=== PATIENT | female | born 1975 | race Caucasian/White ===

== ENCOUNTER 2021-03-27 12:13 | Emergency (ER) | payer MEDICARE, MEDICAID, SELFPAY ==
[2021-03-27 12:17] VITALS: BP 168/105; PULSE 83; RESP 16; TEMP 37; O2SAT 99; BMI 28.1
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
[2021-03-27 12:51] LABS: Add Urine Microscopic? NO; Charge for UA Resulting for Rev
[2021-03-27 13:02] LABS: Bilirubin Urine Neg (Negative); Blood Urine Neg (Negative); Glucose Urine UA Norm (Normal); Ketones Urine Negative (Negative); Leukocyte Esterase Urine Negative (Negative); Nitrate Urine Negative (Negative); Protein Urine Neg (Negative); Specific Gravity, Urine 1.005 (1.005-1.030); Urine Appearance Clear (CLEAR); Urine Color Yellow (Yellow); Urobilinogen Urine Norm (Negative); pH Urine 7 (5-7)
[2021-03-27 13:20] LABS: Basophils # 0.1 10^3/uL (0.0-0.1); Basophils % 0.7 %; Eosinophils # 0.2 10^3/uL (0.0-0.8); Eosinophils % 2.5 %; Hematocrit 35.6 % (37.0-47.0); Hemoglobin 11.3 g/dL (11.5-15.3); Lymphocytes # 2.4 10^3/uL (0.8-4.8); Lymphocytes % 27.7 %; Mean Corpuscular HGB Conc 31.7 g/dL (30.0-36.0); Mean Corpuscular Hemoglobin 29.4 pg (28.0-34.0); Mean Corpuscular Volume 92.5 fL (81-99); Mean Platelet Volume 9.8 fL (7.4-10.4); Monocytes # 0.8 10^3/uL (0.2-0.9); Monocytes % 9.1 %; Neutrophils # 5.04 10^3/uL (1.8-7.7); Neutrophils % 59.5 %; Nucleated Red Blood Cells % 0 %; Platelet Count 363 10^3/cmm (130-400); Red Blood Count 3.85 10^6/uL (4.1-5.3); Red Cell Distribution Width 13.8 % (12.1-15.1); White Blood Count 8.5 10^3/uL (4.0-10.0)
[2021-03-27 13:40] LABS: Alanine Aminotransferase 28 U/L (0-33); Albumin Level 3.7 g/dL (3.5-5.2); Alkaline Phosphatase 123 IU/L (35-105); Aspartate Amino Transferase 31 U/L (0-32); Blood Urea Nitrogen 7 mg/dL (6-20); Calcium 8.2 mg/dL (8.5-10.5); Carbon Dioxide 26 mmol/L (22-29); Chloride 107 mmol/L (98-107); Globulin 3.6 g/dL (1.3-4.6); Glomerular Filtration Rate 108.6 mL/min (90-130); Glucose 88 mg/dL (65-115); Osmolality Calculated 291 mOsm/kg (285-295); Sodium 142 mmol/L (136-145); Total Bilirubin 0.2 mg/dL (0.15-1.2); Total Protein 7.3 g/dL (6.6-8.7)
--- NOTE | 2021-03-27 13:58 | PC.PHAR ---
pt states she takes care of her own medications-pt states she is allergic to famotidine 20mg bid filled on 03/25/21 pt states she has never taken this medication before-ext med history shows a 40mg daily filled on 10/13/2020 90d/s-pt states she didnt get mirtazapine 15mg hs,risperidone 0.5mg bid and senna s 1 bid all filled on 03/25/21-divine [phone] states the pt picked up these medications on 03/25/21
[2021-03-27] MEDS: ketorolac 30 mg/mL INJ IVP (14:21)
--- NOTE | 2021-03-27 16:08 | PC.NURSE ---
Pt appears to be in no pain, wandering around in the hallway, generally non-compliant with staff.
[2021-03-27 17:51] VITALS: BP 115/75; PULSE 71; RESP 16; O2SAT 98
== END 2021-03-27 17:52 | disposition home or self-care (01) ==
PROVIDERS: Emergency Provider Family Medicine
DX: S12.9XXA Fracture of neck, unspecified, initial encounter (principal); V45.9XXA Unspecified car occupant injured in collision with railway train or railway vehicle in traffic accident, initial encounter
CPT/HCPCS: 80053; 81003; 85025; 96374; 99283; J1885

== ENCOUNTER 2021-08-21 02:12 | Emergency (ER) | payer MEDICARE, MEDICAID, SELFPAY ==
[2021-08-21 02:14] VITALS: BP 141/89; PULSE 84; RESP 16; TEMP 35.9; O2SAT 96; BMI 23.6
--- NOTE | 2021-08-21 02:17 | XRR_ITS ---
PROCEDURE INFORMATION: Exam: XR Chest Exam date and time: 08/21/2021 2:17 AM Age: 45 years old Clinical indication: Prior surgery; Surgery type: Cervical fusion. Costal fixation. ; Patient HX: Epigastric pain; Additional info: Cp TECHNIQUE: Imaging protocol: XR of the chest. Views: 1 view. COMPARISON: CT Thoracic Spine wo IV* [id number] 02/06/2017 2:20 PM FINDINGS: Lungs: There are low lung volumes. Otherwise, the lungs are clear. Pleural spaces: Unremarkable. No pleural effusion. No pneumothorax. Heart/Mediastinum: Unremarkable. No cardiomegaly. Bones/joints: Multiple rib fixation plates are in place. Anterior cervical fixation hardware is in place. XR/XR chest 1V portable [id number] IMPRESSION: There are low lung volumes. Otherwise, the lungs are clear. Radiation Dose CTDIVOL = (mGy): DLP = (mGy-cm)
--- NOTE | 2021-08-21 02:18 | ECG_ITS ---
[facility] Test Date: 2021-08-21 Pat Name: Dao Rushing Department: Room: Gender: Female Mothers Helper: : 1975 Requested By: Rahul Michelle Order Number: [id number] Ninfa MD: Georgiana Bassett M.D. Measurements Intervals Spencer Rate: 73 P: 45 DE: 156 QRS: 5 QRSD: 96 T: 18 QT: 392 QTc: 432 Interpretive Statements SINUS RHYTHM POSSIBLE RIGHT VENTRICULAR CONDUCTION DELAY [RSR (QR) IN V1/V2] No previous ECG available for comparison Electronically Signed On 08-21-2021 9:34:47 CDT by Georgiana Bassett M.D. [email or web address] [email or web address] hospitalTendrkettering health troyObalon [employer]/store/NU/[id number] f
--- NOTE | 2021-08-21 02:21 | ED_ITS ---
HPI - Abdominal Pain General: Chief Complaint: Abdominal Pain Stated Complaint: behavioral Time Seen by Provider: 08/21/21 02:16 Source: patient and EMS Mode of arrival: EMS Limitations: no limitations History of Present Illness: HPI narrative: 45-year-old female is here with EMS with complaints of abdominal pain along with some right-sided chest pain. States she believes she had her chest yesterday as it hurts to touch. She is a history of homelessness and EMS states that they picked up her uncles residents but he states she is not allowed to stay there. She has no psychiatric complaints and denies any SI or HI. She is able answer my questions appropriately. She denies any fevers. States her pain is a diffuse cramping pain in abdomen rates it a 2 out of 10. She has had no vomiting or diarrhea. Associated Symptoms: Denies chills, dysuria and fever(s) Review of Systems Const: Denies: fever(s), chills, body aches or change in appetite Eyes: Denies: blurry vision or eye discomfort ENMT: Denies: throat pain or dental pain Card: Denies: chest pain Resp: Denies: dyspnea GI: Reports: abdominal pain : Denies: dysuria Musc: Denies: neck pain or back pain Skin/Breast: Denies: rash Neuro: Denies: headache(s) Psych: Denies: depression Donovan/Lymph: Denies: easy bruising All/Imm: Denies: urticaria Physical Exam Const: COMMON NORMALS: no acute distress, patient oriented x3 and healthy appearing HENMT: COMMON NORMALS: normocephalic and atraumatic HEAD & SCALP: normocephalic and atraumatic Eye: COMMON NORMALS: Equal, round and reactive pupils present and EOMs intact bilaterally PUPIL: Yes Equal, round and reactive pupils present Neck/C-Spine: COMMON NORMALS: full ROM and supple Chest: COMMONS NORMALS: normal inspection of the chest and normal palpation of entire chest wall Resp: COMMON NORMALS: normal respiratory effort, No retractions, No use of accessory muscles and clear to auscultation bilaterally AUSCULTATION: clear to auscultation bilaterally Cardio: COMMON NORMALS: regular rate, regular rhythm and No murmurs present (Cardio) RATE: regular rate RHYTHM: regular rhythm GI: COMMON NORMALS: Normal to inspection, nondistended, normoactive bowel sounds present, Soft to palpation, non-tender and no masses PALPATION: Yes Soft to palpation Extremity: COMMON NORMALS: normal to inspection and full ROM Neuro: COMMON NORMALS: patient oriented x3, moves all extremities and no focal motor deficits Psych: COMMON NORMALS: mental status grossly normal, Normal thought process present and cooperative THOUGHT PROCESS: Normal thought process present Skin: COMMON NORMALS: no rashes or lesions noted and no wounds GENERAL SKIN EXAM: no rashes or lesions noted Course Vital Signs: Vital signs: Vital Signs Temperature 96.7 F L 08/21/21 02:14 Pulse Rate 80 08/21/21 04:57 Respiratory Rate 22 H 08/21/21 04:57 Blood Pressure 136/84 08/21/21 04:57 Pulse Oximetry 97 08/21/21 04:57 MDM - Abdominal Pain MDM Narrative: Medical decision making narrative: Patient presents here with abdominal pain likely from acute cystitis. Exam here is benign she has no signs of acute surgical abdomen has a normal white blood cell count. I do not believe she warrants an abdominal CT. Will place on antibiotics and she is stable for discharge. She is to follow-up with PCP and return if worsening. Lab Data: Labs: Lab Results 08/21/21 08/21/21 08/21/21 03:25 03:25 03:53 WBC Cancelled 7.2 10^3/uL 10^3/ uL (4.0-10.0) Corrected WBC Cancelled RBC Cancelled 4.98 10^6/uL 10^6 /uL (4.1-5.3) Hgb Cancelled 14.2 g/dL g/dL (11.5-15.3) Hct Cancelled 42.8 % % (37.0-47.0) MCV Cancelled 85.9 fl fl (81-99) MCH Cancelled 28.5 pg pg (28.0-34.0) MCHC Cancelled 33.2 g/dL g/dL (30.0-36.0) RDW Cancelled 15.1 % % (12.1-15.1) Plt Count Cancelled 259 10^3/cmm 10^3 /cmm (130-400) MPV Cancelled 10.0 fL fL (7.4-10.4) Gran % Cancelled Neut % (Auto) Cancelled 51.4 % % Lymph % (Auto) Cancelled 37.4 % % [place] % (Auto) Cancelled 8.7 % % Eos % (Auto) Cancelled 1.2 % % Baso % (Auto) Cancelled 1.0 % % Neut # (Auto) Cancelled 3.70 10^3/uL 10^3 /uL (1.8-7.7) Lymph # (Auto) Cancelled 2.7 10^3/uL 10^3/ uL (0.8-4.8) [place] # (Auto) Cancelled 0.6 10^3/uL 10^3/ uL (0.2-0.9) Eos # (Auto) Cancelled 0.1 10^3/uL 10^3/ uL (0.0-0.8) Baso # (Auto) Cancelled 0.1 10^3/uL 10^3/ uL (0.0-0.1) Absolute Gran (aut o) Cancelled Nucleated RBC % (a uto) Cancelled 0 % % Nucleated RBCs # Cancelled 0.0 /100WBC /100W BC Sodium 136 mmol/L mmol/L (136-145) Potassium 3.8 mmol/L mmol/L (3.5-5.1) Chloride 105 mmol/L mmol/L (98-107) Carbon Dioxide 21 mmol/L L mmol/ L (22-29) Anion Gap 13.8 (5-19) BUN 6 mg/dL mg/dL (6-20) Creatinine 0.5 mg/dL mg/dL (0.5-0.9) GFR Calculation 134.0 mL/min H mL /min (90-130) Glucose 91 mg/dL mg/dL (65-115) Calculated Osmolal ity 279 mOsm/kg L mOs m/kg (285-295) Calcium 8.7 mg/dL mg/dL (8.5-10.5) Total Bilirubin 0.5 mg/dL mg/dL (0.15-1.2) AST 46 U/L H U/L (0-32) ALT 49 U/L H U/L (0-33) Alkaline Phosphata se 104 IU/L IU/L (35-105) Total Protein 6.9 g/dL g/dL (6.6-8.7) Albumin 3.9 g/dL g/dL (3.5-5.2) Globulin 3.0 g/dL g/dL (1.3-4.6) Lipase 24 U/L U/L (13-60) Urine Color Urine Appearance Urine pH Ur Specific Gravit y Urine Protein Urine Glucose (UA) Urine Ketones Urine Blood Urine Nitrate Urine Bilirubin Urine Urobilinogen Ur Leukocyte Sangeeta ase Urine RBC Urine WBC Ur Squamous Epith Cells Amorphous Sediment Urine Bacteria Urine Opiates Scre en Ur Barbiturates Sc reen Ur Phencyclidine S crn Ur Amphetamines Sc reen U Benzodiazepines Scrn Urine Cocaine Scre en U Marijuana (THC) Screen 08/21/21 08/21/21 04:20 04:20 WBC Corrected WBC RBC Hgb Hct MCV MCH MCHC RDW Plt Count MPV Gran % Neut % (Auto) Lymph % (Auto) [place] % (Auto) Eos % (Auto) Baso % (Auto) Neut # (Auto) Lymph # (Auto) [place] # (Auto) Eos # (Auto) Baso # (Auto) Absolute Gran (aut o) Nucleated RBC % (a uto) Nucleated RBCs # Sodium Potassium Chloride Carbon Dioxide Anion Gap BUN Creatinine GFR Calculation Glucose Calculated Osmolal ity Calcium Total Bilirubin AST ALT Alkaline Phosphata se Total Protein Albumin Globulin Lipase Urine Color Colorless (Yellow) Urine Appearance Clear (CLEAR) Urine pH 7 (5-7) Ur Specific Gravit y 1.005 (1.005-1.030) Urine Protein Neg (Negative) Urine Glucose (UA) Norm (Normal) Urine Ketones Negative (Negative) Urine Blood Neg (Negative) Urine Nitrate Positive H (Negative) Urine Bilirubin Neg (Negative) Urine Urobilinogen Norm mg/dL mg/dL (Negative) Ur Leukocyte Sangeeta ase Negative (Negative) Urine RBC None /hpf /hpf (0-2) Urine WBC None /hpf /hpf (0-5) Ur Squamous Epith Cells Rare /hpf /hpf (0-5) Amorphous Sediment Not Reportable Urine Bacteria 1+ /hpf H /hpf (NONE) Urine Opiates Scre en Negative ng/mL ng /mL (Negative) Ur Barbiturates Sc reen Negative ng/mL ng /mL (Negative) Ur Phencyclidine S crn Negative ng/mL ng /mL (Negative) Ur Amphetamines Sc reen Negative ng/mL ng /mL (Negative) U Benzodiazepines Scrn Negative ng/mL ng /mL (Negative) Urine Cocaine Scre en Negative ng/mL ng /mL (Negative) U Marijuana (THC) Screen Negative ng/mL ng /mL (Negative) Imaging Data ^: CXR: Attestation: I personally reviewed and interpreted this imaging study as follows: Radiologist's impression: [facility] [address] [facility] [place] [address] XRay Report Signed Patient: Dao Rushing Unit #: [id number] : 1975 Age/Sex: 45 / F ADM Date: 08/21/21 Loc: ER Room/Bed: Attending Dr: Ordering Provider/Ordering MD: Rahul Michelle MD Date of Service: 08/21/21 Procedure(s): XR chest 1V portable [id number] Accession Number(s): [id number] Report Number: [id number] PROCEDURE INFORMATION: Exam: XR Chest Exam date and time: 08/21/2021 2:17 AM Age: 45 years old Clinical indication: Prior surgery; Surgery type: Cervical fusion. Costal fixation. ; Patient HX: Epigastric pain; Additional info: Cp TECHNIQUE: Imaging protocol: XR of the chest. Views: 1 view. COMPARISON: CT Thoracic Spine wo IV* [id number] 02/06/2017 2:20 PM FINDINGS: Lungs: There are low lung volumes. Otherwise, the lungs are clear. Pleural spaces: Unremarkable. No pleural effusion. No pneumothorax. Heart/Mediastinum: Unremarkable. No cardiomegaly. Bones/joints: Multiple rib fixation plates are in place. Anterior cervical fixation hardware is in place. XR/XR chest 1V portable [id number] IMPRESSION: There are low lung volumes. Otherwise, the lungs are clear. Radiation Dose CTDIVOL = (mGy): DLP = (mGy-cm) Dictated By: Victor M Park Signed By: Victor M Park Signed Date/Time: 08/21/218 DD/ 6 EKG Data ^: EKG 1: Attestation: I personally reviewed and interpreted this EKG as follows: EKG interpretation date: 08/21/21 EKG interpretation time: 02:31 Interpretation: nsr hr [address] or t wave abnormalities qrs 96 qtc 417 Discharge Plan Discharge Patient Disposition: Home Clinical Impression: Abdominal pain Acute cystitis Qualifiers: Hematuria presence: without hematuria Qualified Code(s): N30.00 - Acute cystitis without hematuria Condition: Stable Prescriptions: New cephalexin 500 mg capsule 500 mg PO TID 7 Days Qty: 21 RF: 0 ondansetron 4 mg tablet,disintegrating 4 mg PO Q6H PRN (Reason: nausea and vomiting) Qty: 14 RF: 0 No Action ibuprofen 800 mg tablet 800 mg PO TID PRN (Reason: Pain) RF: 0 Stimulant Laxative Plus 8.6-50 mg tablet 1 tab PO BID RF: 0 Tylenol Extra Strength 500 mg Tablet 500 - 1,000 mg PO PRN RF: 0 gabapentin 300 mg capsule 300 mg PO TID RF: 0 mirtazapine 15 mg tablet 15 mg PO BEDTIME RF: 0 zolpidem 10 mg tablet 10 mg PO BEDTIME RF: 0 risperidone 0.5 mg tablet 0.5 mg PO BID RF: 0 Discharge Orders: Discharge ED (Routine); Ordered 08/21/21 Ordered By: Rahul Michelle Discharge Diet: Advance as tolerated Discharge Activity: Resume usual activity Patient Instructions: Urinary Tract Infection in Women (ED), Abdominal Pain (ED) Coding Level of Care Code ED Solution Strategist for Chg Fwd Exam Comprehensive
[2021-08-21] MEDS: sodium chloride 0.9% 500 ML IV (03:14)
[2021-08-21 03:54] LABS: Alanine Aminotransferase 49 U/L (0-33); Albumin Level 3.9 g/dL (3.5-5.2); Alkaline Phosphatase 104 IU/L (35-105); Blood Urea Nitrogen 6 mg/dL (6-20); Calcium 8.7 mg/dL (8.5-10.5); Carbon Dioxide 21 mmol/L (22-29); Chloride 105 mmol/L (98-107); Glucose 91 mg/dL (65-115); Lipase 24 U/L (13-60); Osmolality Calculated 279 mOsm/kg (285-295); Sodium 136 mmol/L (136-145); Total Bilirubin 0.5 mg/dL (0.15-1.2); Total Protein 6.9 g/dL (6.6-8.7)
[2021-08-21 03:55] LABS: Anion Gap 13.8 (5-19); Aspartate Amino Transferase 46 U/L (0-32); Potassium 3.8 mmol/L (3.5-5.1)
[2021-08-21 03:58] LABS: Basophils # 0.1 10^3/uL (0.0-0.1); Eosinophils # 0.1 10^3/uL (0.0-0.8); Eosinophils % 1.2 %; Hematocrit 42.8 % (37.0-47.0); Hemoglobin 14.2 g/dL (11.5-15.3); Lymphocytes # 2.7 10^3/uL (0.8-4.8); Lymphocytes % 37.4 %; Mean Corpuscular HGB Conc 33.2 g/dL (30.0-36.0); Mean Corpuscular Hemoglobin 28.5 pg (28.0-34.0); Mean Corpuscular Volume 85.9 fl (81-99); Monocytes # 0.6 10^3/uL (0.2-0.9); Monocytes % 8.7 %; Neutrophils % 51.4 %; Nucleated Red Blood Cells % 0 %; Platelet Count 259 10^3/cmm (130-400); Red Blood Count 4.98 10^6/uL (4.1-5.3); Red Cell Distribution Width 15.1 % (12.1-15.1); White Blood Count 7.2 10^3/uL (4.0-10.0)
[2021-08-21 04:32] LABS: Add Urine Microscopic? YES; Bilirubin Urine Neg (Negative); Blood Urine Neg (Negative); Glucose Urine UA Norm (Normal); Ketones Urine Negative (Negative); Leukocyte Esterase Urine Negative (Negative); Nitrate Urine Positive (Negative); Protein Urine Neg (Negative); Specific Gravity, Urine 1.005 (1.005-1.030); Urine Appearance Clear (CLEAR); Urine Color Colorless (Yellow); Urobilinogen Urine Norm (Negative); pH Urine 7 (5-7)
[2021-08-21] MEDS: ondansetron 2 mg/ML SDV 2 mL 4 MG IVP (04:35)
[2021-08-21 04:39] LABS: Amphetamines Screen Urine Negative (Negative); Barbiturates Screen Urine Negative (Negative); Benzodiazepines Screen Urine Negative (Negative); Cocaine Screen Urine Negative (Negative); Opiate Screen Urine Negative (Negative); PCP Screen Urine Negative (Negative); THC Screen Urine Negative (Negative)
[2021-08-21 04:43] VITALS: RESP 22; O2SAT 98
[2021-08-21] MEDS: morphine 4 mg/mL SDV 1 mL IVP (04:43)
[2021-08-21 04:47] LABS: Add Urine Culture? No; Bacteria Urine 1+ /hpf; Squamous Epithelial Cell Urine RARE /hpf (0-5)
[2021-08-21 04:57] VITALS: BP 136/84; PULSE 80; RESP 22; O2SAT 97
--- NOTE | 2021-08-21 09:35 | DCPLANNER ---
air battle manager was asked to help find a rehab placement for patient. air battle manager called [facility], they have no female beds at this time. air battle manager called [facility], and they are not doing any in patient treatment at this time. air battle manager called [facility], was told that patient would need to call and speak with an janitorial tech. air battle manager provided patient with phone number and patient called. air battle manager called [facility] in [place], was told that they were 3 weeks out on having any beds. air battle manager called [facility], they do not have any beds until the end of August. air battle manager also called the following places [facility], [facility] and [place], and they do not have any beds at this time. air battle manager updated charge nurse on looking for beds for patient.
== END 2021-08-21 05:00 | disposition home or self-care (01) ==
PROVIDERS: Emergency Provider Emergency Medicine
DX: N30.00 Acute cystitis without hematuria (principal)
CPT/HCPCS: 36415; 71045; 80053; 80306; 81001; 83690; 85025; 93005; 96361; 96374; 96375; 99283; J2270; J2405; J7040

== ENCOUNTER 2021-08-22 09:26 | Emergency (ER) | payer MEDICARE, MEDICAID, SELFPAY ==
[2021-08-22 09:32] VITALS: BP 119/78; PULSE 67; RESP 14; TEMP 36.6; O2SAT 97; BMI 25.8
[2021-08-22 09:44] VITALS: BP 119/78; PULSE 72; O2SAT 97
--- NOTE | 2021-08-22 09:48 | XRR_ITS ---
PROCEDURE INFORMATION: Exam: XR Right Clavicle, Complete Exam date and time: 08/22/2021 9:48 AM Age: 45 years old Clinical indication: Pain; Other: Clavicle; Additional info: Deformity TECHNIQUE: Imaging protocol: XR Right clavicle complete. Views: Any number of views. Total images: 2 COMPARISON: CR (CHEST, ) 08/21/2021 2:23 AM FINDINGS: Bones/joints: Spinal fusion hardware noted. Soft tissues: Normal. XR/[place] [id number] IMPRESSION: No acute findings. Radiation Dose CTDIVOL = (mGy): DLP = (mGy-cm)
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
[2021-08-22] MEDS: cephALEXin 500 mg Capsule PO (12:18)
[2021-08-22] MEDS: ondansetron 4 MG Tablet PO (12:18)
[2021-08-22] MEDS: CELEcoxib 200 mg Capsule 400 MG PO (12:18)
--- NOTE | 2021-08-25 14:43 | DCPLANNER ---
nurse case manager had message to speak with patient about getting a primary care physician, and speak to patient about [facility]. nurse case manager called patient, unable to speak with patient or leave a voicemail for patient.
== END 2021-08-22 12:58 | disposition home or self-care (01) ==
PROVIDERS: Emergency Provider Nurse Practitioner Family
DX: N30.00 Acute cystitis without hematuria (principal); F10.10 Alcohol abuse, uncomplicated
CPT/HCPCS: 73000; 99283; Q0162

== ENCOUNTER 2021-09-02 10:07 | Emergency (ER) | payer MEDICARE, MEDICAID, SELFPAY ==
[2021-09-02 10:19] VITALS: BP 140/97; PULSE 82; RESP 16; TEMP 36.8; O2SAT 98; BMI 27.1
[2021-09-02 10:31] VITALS: BP 140/97; PULSE 82; RESP 16; TEMP 36.8; O2SAT 98
--- NOTE | 2021-09-02 10:46 | W.ED.PSYCH ---
Documented by User: VENUS Young 09/02/21 16:12 HPI - Psych General: Chief Complaint: Psychiatric Symptoms Stated Complaint: MHE Time Seen by Provider: 09/02/21 10:28 History of Present Illness: HPI Narrative: Patient is a 45-year-old female comes to the ED for mental health evaluation. Patient is homeless and comes here to the ED because she most cannot go to a homeless senior living and they told her she needed a mental health evaluation before she could be accepted into the homeless senior living. Patient denies any recent drug or alcohol abuse. She does admit to having a drink of alcohol late last night. Denies any SI, HI, depression, anxiety, auditory or visual hallucinations. Patient denies any other complaints. Associated symptoms: Deny auditory hallucinations, visual hallucinations, depression, homicidal ideation or suicidal ideation Review of Systems Const: Denies: fever(s), chills or fatigue Eyes: Denies: change in vision or eye discomfort ENMT: Denies: throat pain, odynophagia, nasal discharge or nasal congestion Card: Denies: chest pain, palpitations, edema, swelling of feet/ankles, dyspnea on exertion or orthopnea Resp: Denies: dyspnea, productive cough or non-productive cough GI: Denies: abdominal pain, nausea, vomiting, diarrhea, constipation or hematochezia : Denies: flank pain, dysuria or hematuria Musc: Denies: neck pain, back pain or extremity swelling Skin/Breast: Denies: rash or new lesions Neuro: Denies: headache(s), numbness in extremities or weakness in extremities Psych: Denies: anxiety, depression, visual hallucinations, auditory hallucinations, suicidal ideation or homicidal ideation Physical Exam Const: COMMON NORMALS: no acute distress, patient oriented x3 and alert GENERAL APPEARANCE: cooperative and comfortable HENMT: COMMON NORMALS: normocephalic HEAD & SCALP: normocephalic MOUTH: Normal oral and palatal mucosa present THROAT: posterior oropharynx normal and uvula midline Neck/C-Spine: COMMON NORMALS: supple GENERAL: Yes normal visual inspection Resp: COMMON NORMALS: normal respiratory effort, No retractions, No use of accessory muscles and clear to auscultation bilaterally AUSCULTATION: clear to auscultation bilaterally Cardio: COMMON NORMALS: regular rate, regular rhythm, S1 normal heart sound present, S2 normal heart sound present, No gallops present (Cardio), No clicks present (Cardio), No murmurs present (Cardio) and Peripheral pulses 2+ throughout RATE: regular rate RHYTHM: regular rhythm HEART SOUNDS: S1 normal heart sound present and S2 normal heart sound present PERIPHERAL PULSES: Peripheral pulses 2+ throughout GI: COMMON NORMALS: Normal to inspection, nondistended, normoactive bowel sounds present, Soft to palpation, non-tender and no masses PALPATION: Yes Soft to palpation : COMMON NORMALS: Yes no CVA tenderness BLADDER/KIDNEY EXAM: Yes no CVA tenderness Back/Pelvis: COMMON NORMALS: no CVA tenderness Extremity: COMMON NORMALS: normal to inspection Neuro: COMMON NORMALS: patient oriented x3 and moves all extremities SENSORIUM/ORIENTATION: Yes alert Psych: COMMON NORMALS: mental status grossly normal and speech normal APPEARANCE: Yes grossly normal ATTITUDE: Yes calm ACTIVITY/MOTOR BEHAVIOR: Yes appropriate eye contact SPEECH: Yes normal speech THOUGHT CONTENT: No Suicidality present, No Homicidality present and No Hallucination(s) present ATTENTION/CONCENTRATION: Yes attention grossly intact and Yes concentration grossly intact MEMORY/COGNITION: Yes memory grossly intact and Yes cognition grossly intact Skin: GENERAL SKIN EXAM: dry skin Course Vital Signs: Vital signs: Vital Signs Temperature 98.2 F 09/02/21 10:31 Pulse Rate 82 09/02/21 10:31 Respiratory Rate 16 09/02/21 10:31 Blood Pressure 140/97 09/02/21 10:31 Pulse Oximetry 98 09/02/21 10:31 MDM - Psych MDM Narrative: Medical decision making narrative: Patient is a 45-year-old female comes to the ED for mental health evaluation. Patient is homeless and says she is going into a homeless senior living and they told her to come here to the ED to have any evaluation performed. Patient denies any SI, HI, depression, anxiety, auditory or visual hallucinations. Patient does not have a primary care doctor and asked me to get a referral, so I placed an order with case management for patient to be referred to PCP to get established care. Patient is cleared for discharge and told to go to the homeless senior living after DC. Patient understood agree with plan. Discharge Plan Discharge Patient Disposition: Home Clinical Impression: Homelessness unspecified Condition: Stable Prescriptions: No Action ibuprofen 800 mg tablet 800 mg PO TID PRN (Reason: Pain) RF: 0 Stimulant Laxative Plus 8.6-50 mg tablet 1 tab PO BID RF: 0 Tylenol Extra Strength 500 mg Tablet 500 - 1,000 mg PO PRN RF: 0 gabapentin 300 mg capsule 300 mg PO TID RF: 0 mirtazapine 15 mg tablet 15 mg PO BEDTIME RF: 0 zolpidem 10 mg tablet 10 mg PO BEDTIME RF: 0 risperidone 0.5 mg tablet 0.5 mg PO BID RF: 0 ondansetron 4 mg tablet,disintegrating 4 mg PO Q6H PRN (Reason: nausea and vomiting) Qty: 14 RF: 0 Discharge Orders: Discharge ED (Routine); Ordered 09/02/21 Ordered By: Grzegorz Frazier Discharge Diet: Regular Discharge Activity: Resume usual activity Activity Restrictions/Additional Instructions: Follow-up with medical provider as directed in 7-10 days for reevaluation. go to homeless senior living after discharge. Return to the ER or your medical provider if condition worsens. Please read and understand discharge instructions. Thank you for choosing [facility] for your healthcare needs today. Please realize this is an emergency room and that we are providing you with a medical screening exam and this may not be complete and all inclusive of all the testing and or work up that you may need to determine your ailment or severity of your illness. It is very important that you follow up as instructed or that you return to the Emergency Department should you have concerns or if your condition changes or worsens in any way. Coding Level of Care Code ED Grocery Associate for Chg Fwd Exam Comprehensive Documented by User: Yusuf Power DO 09/02/21 16:16 HPI - Psych General: Chief Complaint: Psychiatric Symptoms Stated Complaint: MHE Time Seen by Provider: 09/02/21 10:28 Course Vital Signs: Vital signs: Vital Signs Temperature 98.2 F 09/02/21 10:31 Pulse Rate 82 09/02/21 10:31 Respiratory Rate 16 09/02/21 10:31 Blood Pressure 140/97 09/02/21 10:31 Pulse Oximetry 98 09/02/21 10:31 MDM - Psych MDM Narrative: Medical decision making narrative: Patient reviewed and discussed with Grzegorz Frazier PA agree with assessment and plan. Discharge Plan Discharge Patient Disposition: Home Clinical Impression: Homelessness unspecified Condition: Stable Prescriptions: No Action ibuprofen 800 mg tablet 800 mg PO TID PRN (Reason: Pain) RF: 0 Stimulant Laxative Plus 8.6-50 mg tablet 1 tab PO BID RF: 0 Tylenol Extra Strength 500 mg Tablet 500 - 1,000 mg PO PRN RF: 0 gabapentin 300 mg capsule 300 mg PO TID RF: 0 mirtazapine 15 mg tablet 15 mg PO BEDTIME RF: 0 zolpidem 10 mg tablet 10 mg PO BEDTIME RF: 0 risperidone 0.5 mg tablet 0.5 mg PO BID RF: 0 ondansetron 4 mg tablet,disintegrating 4 mg PO Q6H PRN (Reason: nausea and vomiting) Qty: 14 RF: 0 Discharge Orders: Discharge ED (Routine); Ordered 09/02/21 Ordered By: Grzegorz Frazier Discharge Diet: Regular Discharge Activity: Resume usual activity Activity Restrictions/Additional Instructions: Follow-up with medical provider as directed in 7-10 days for reevaluation. go to homeless senior living after discharge. Return to the ER or your medical provider if condition worsens. Please read and understand discharge instructions. Thank you for choosing [facility] for your healthcare needs today. Please realize this is an emergency room and that we are providing you with a medical screening exam and this may not be complete and all inclusive of all the testing and or work up that you may need to determine your ailment or severity of your illness. It is very important that you follow up as instructed or that you return to the Emergency Department should you have concerns or if your condition changes or worsens in any way. Coding Level of Care Code ED Grocery Associate for Eli Fwd Exam Comprehensive
--- NOTE | 2021-09-02 14:50 | PC.NURSE ---
Awaiting transportation for pt.
--- NOTE | 2021-09-03 14:26 | DCPLANNER ---
analytics senior manager had message to speak with patient about getting a primary care physician. analytics senior manager called phone number [phone], unable to speak with patient or leave a voicemail for patient. A recording stated that the phone number was unavailable.
== END 2021-09-02 15:12 | disposition home or self-care (01) ==
PROVIDERS: Emergency Provider Physician Assistant
DX: Z00.8 Encounter for other general examination (principal); Z59.00 Homelessness unspecified
CPT/HCPCS: 99282

== ENCOUNTER → 2024-06-05 11:13 | Outpatient (BNVA) | payer MEDICARE, MEDICAID, SELFPAY | PROVIDERS: Visit Provider Nurse Practitioner | DX: L65.9 Nonscarring hair loss, unspecified (principal) | CPT/HCPCS: 80053; 84443; 85025 ==

== ENCOUNTER 2025-04-21 19:22 | Emergency (ER) | payer OTHER, MEDICAID, SELFPAY ==
[2025-04-21 19:23] VITALS: BP 134/97; PULSE 88; RESP 18; TEMP 37; O2SAT 95; BMI 32.9
--- NOTE | 2025-04-21 19:38 | CTR_ITS ---
PROCEDURE INFORMATION: Exam: CT Abdomen And Pelvis With Contrast Exam date and time: 04/21/2025 8:11 PM Age: 49 years old Clinical indication: Abdominal pain; Localized; Left lower quadrant (llq); Prior surgery; Surgery date: 6+ months; Surgery type: Hysterectomy; C/O llq pain; Additional info: Llq abd pain TECHNIQUE: Imaging protocol: Computed tomography of the abdomen and pelvis with contrast. Radiation optimization: All CT scans at this facility use at least one of these dose optimization techniques: automated exposure control; mA and/or kV adjustment per patient size (includes targeted exams where dose is matched to clinical indication); or iterative reconstruction. Contrast material: OMNI 350; Contrast volume: 100 ml; Contrast route: INTRAVENOUS (IV); COMPARISON: CR XR chest 1V portable [id number] 08/21/2021 2:23 AM RADIATION DOSE METRICS: Total DLP (mGy-cm): 999.72 FINDINGS: Lungs: Visualized lung bases are clear. Liver: The liver is unremarkable. Gallbladder and biliary ducts: The gallbladder is unremarkable. No biliary ductal dilatation. Pancreas: The pancreas is unremarkable. Spleen: The spleen is unremarkable. Adrenal glands: The adrenal glands are unremarkable. Kidneys and ureters: Kidneys are normal. No hydronephrosis or nephrolithiasis. Stomach and bowel: No evidence of bowel obstruction. Appendix: The appendix is normal. Intraperitoneal space: No significant free fluid in the abdomen or pelvis. No extraluminal free air. Vasculature: Minimal scattered calcific atheromatous disease of the abdominal aorta and its major branches. No abdominal aortic aneurysm. Lymph nodes: No distinct pathologically enlarged lymphadenopathy. Urinary bladder: Urinary bladder is within normal limits. Reproductive: Uterus is absent. Bones/joints: Multilevel spondylosis. Partially imaged fixation of multiple right ribs. No distinct acute osseous findings. Soft tissues: Visualized superficial soft tissues are within normal limits. CT/CT abdomen pelvis w con* [id number] IMPRESSION: No acute pathologic findings in the abdomen/pelvis.
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
[2025-04-21 20:08] LABS: Basophils # 0.1 10^3/uL (0.0-0.1); Basophils % 0.5 %; Eosinophils # 0.1 10^3/uL (0.0-0.8); Eosinophils % 0.5 %; Hematocrit 39.3 % (36-47); Lymphocytes # 2.6 10^3/uL (0.8-4.8); Lymphocytes % 23.4 %; Mean Corpuscular HGB Conc 34.9 g/dL (30-55); Mean Corpuscular Hemoglobin 31.6 pg (27-33); Mean Corpuscular Volume 90.8 fl (85-98); Mean Platelet Volume 10.3 fL (7.4-10.4); Monocytes # 0.9 10^3/uL (0.2-0.9); Monocytes % 8.3 %; Neutrophils # 7.29 10^3/uL (1.8-7.7); Neutrophils % 66.8 %; Nucleated Red Blood Cells % 0 %; Platelet Count 248 10^3/cmm (157-399); Red Blood Count 4.33 10^6/uL (3.85-5.65); Red Cell Distribution Width 12.5 % (12.1-15.1); White Blood Count 10.93 10^3/uL (3.29-11.43)
[2025-04-21] MEDS: ketorolac 30 mg/mL INJ 15 MG IVP (20:10)
[2025-04-21 20:12] LABS: Bilirubin Urine Negative (Negative); Blood Urine Negative (Negative); Glucose Urine UA Negative (Normal); Ketones Urine Negative (Negative); Leukocyte Esterase Urine Negative (Negative); Nitrate Urine Negative (Negative); Protein Urine Negative (Negative); Specific Gravity, Urine 1.003 (1.005-1.030); Urine Appearance Clear (CLEAR); Urine Color Yellow (Yellow); Urobilinogen Urine 0.2 mg/dL (Negative); pH Urine 5.5 (5-7)
[2025-04-21] MEDS: iohexol 350 mg/mL 500 mL Btl (per mL) IV (20:13)
--- NOTE | 2025-04-21 20:16 | PC.NURSE ---
Patient in CT for scan.
[2025-04-21 20:17] LABS: Add Urine Microscopic? YES; Bacteria Urine None Seen /hpf; Hyaline Casts Urine 0-4 /lpf; RBC Urine 0-2 /hpf (0-2); Squamous Epithelial Cell Urine 0-5 /hpf (0-5); WBC Urine 0-5 /hpf (0-5)
[2025-04-21 20:33] VITALS: BP 129/72; PULSE 76; RESP 18; O2SAT 93
[2025-04-21 20:34] LABS: Alanine Aminotransferase 95 U/L (0-33); Albumin Level 3.8 g/dL (3.5-5.2); Alkaline Phosphatase 121 U/L (35-105); Aspartate Amino Transferase 67 U/L (0-32); Blood Urea Nitrogen 5 mg/dL (6-20); Calcium 8.9 mg/dL (8.5-10.5); Carbon Dioxide 20 mmol/L (22-29); Chloride 105 mmol/L (98-107); Creatinine Clr Calc Pharmacy 141.6579; Globulin 3.1 g/dL (1.3-4.6); Glomerular Filtration Rate 106.7 mL/min (90-130); Glucose 85 mg/dL (65-115); Lipase 43 U/L (13-60); Osmolality Calculated 279 mOsm/kg (285-295); Sodium 136 mmol/L (136-145); Total Bilirubin 0.2 mg/dL (0.15-1.2); Total Protein 6.9 g/dL (6.6-8.7)
[2025-04-21 20:37] LABS: Anion Gap 14.8 (5-19); Potassium 3.8 mmol/L (3.5-5.1)
[2025-04-21 20:43] LABS: HCG Qualitative Urine. Negative (Negative)
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
[2025-04-21 21:31] LABS: Trichomonas vaginalis (PCR) NOT DETECTED
[2025-04-21 21:55] LABS: Chlamydia Trachomatis NOT DETECTED; Neisseria Gonorrhea NOT DETECTED
--- NOTE | 2025-04-21 22:42 | PC.NURSE ---
patient would not allow me the check her vital signs. Her IV was removed, discharge was reviewed with the patient by the [facility] nurse. Resources were given to the patient. patient ambulated to with a steady gait.
[2025-04-21 22:45] LABS: Amphetamines Screen Urine Negative (Negative); Barbiturates Screen Urine Negative (Negative); Benzodiazepines Screen Urine Negative (Negative); Cocaine Screen Urine Negative (Negative); Opiate Screen Urine Negative (Negative); PCP Screen Urine Negative (Negative); THC Screen Urine Negative (Negative)
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
== END 2025-04-21 22:15 | disposition home or self-care (01) ==
PROVIDERS: Emergency Medicine; Emergency Provider Emergency Medicine; PCP Nurse Practitioner
DX: R10.9 Unspecified abdominal pain (principal); E11.9 Type 2 diabetes mellitus without complications
CPT/HCPCS: 36415; 74177; 80053; 80306; 81001; 81025; 83690; 85025; 87491; 87591; 87661; 96374; 99285; J1885

== ENCOUNTER 2025-04-22 18:58 | Emergency (ER) | payer OTHER, MEDICAID, SELFPAY ==
[2025-04-22 19:19] VITALS: BP 134/90; PULSE 74; RESP 17; TEMP 36.7; O2SAT 98; BMI 36.9
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
[2025-04-22] MEDS: acetaminophen 500 mg Tablet 1000 MG PO (21:46)
[2025-04-22] MEDS: cyclobenzaprine 10 mg Tablet PO (21:46)
== END 2025-04-22 21:49 | disposition home or self-care (01) ==
PROVIDERS: Emergency Provider Physician Assistant; PCP Nurse Practitioner
DX: M54.50 Low back pain, unspecified (principal)
CPT/HCPCS: 99283; J9999

== ENCOUNTER 2025-04-27 18:22 | Emergency (ER) | payer OTHER, MEDICAID, SELFPAY ==
[2025-04-27 18:44] VITALS: BP 125/80; PULSE 85; RESP 18; TEMP 36.8; O2SAT 96
--- NOTE | 2025-04-27 18:45 | ED.C_ITS ---
HPI - Psych General: Chief Complaint: Psychiatric Symptoms Stated Complaint: mhe Time Seen by Provider: 04/27/25 18:29 History of Present Illness: 49-year-old female complaining of feelin g unwell. She will not give a specific complaint. She is not homicidal or suicidal. She states that she has mental problems. She was seen earlier, and Risperdal was prescribed to her, but she has not picked up this prescription. She had also been to the crisis center, per housing had been offered, but she declined. She has presented to the emergency department a couple of times prior, asking to be admitted to the hospital for social reasons. Related Data Home Medications ?Medication ?Instructions ?Recorded ?Confirmed ibuprofen 800 mg tablet 800 mg PO TID PRN Pain 03/2707/13/24 Previous Rx's ?Medication ?Instructions ?Recorded hydroxyzine HCl 25 mg tablet 25 mg PO BEDTIME PRN inso mnia #30 06/05/24 tabs risperidone 0.5 mg tablet 0.5 mg PO BID #30 tabs 06/05 celecoxib 200 mg capsule (Celebrex) 200 mg PO BID #60 caps 07/13/24 gabapentin 300 mg capsule 300 mg PO BEDTIME #30 caps 0 08/09/24 acetaminophen 500 mg tablet 500 - 1,000 mg (1 - 2 x 50 0 mg) PO 04/22/25 (Tylenol Extra Strength) PRN #30 tabs Allergies Allergy/AdvReac Type Severity Reaction Status Date / Time bee venom protein (honey bee) Allergy ALGY-Hives Verified 07/13/24 13:57 doxycycline Allergy ALGY-Hives Verified 07/13/24 13:57 famotidine Allergy ADR-Itching Verified 07/13/24 13:57 PFS ED PFSH: Social History Smoking and tobacco/nicotine status: never used tobacco/nicotine Physical Exam Const: COMMON NORMALS: no acute distress GENERAL APPEARANCE: cooperative; not ill appearing and not frail appearing HENMT: COMMON NORMALS: normocephalic, atraumatic and Normal external nose present HEAD & SCALP: normocephalic and atraumatic FACE & SINUS: normal facial exam and face symmetric NOSE: Normal external nose present Eye: COMMON NORMALS: Equal, round and reactive pupils present and EOMs intact bilaterally PUPIL: Yes Equal, round and reactive pupils present Neck/C-Spine: GENERAL: Yes trachea midline Chest: CHEST: Yes Symmetrical chest wall rise Resp: COMMON NORMALS: normal respiratory effort, No retractions, No use of accessory muscles and clear to auscultation bilaterally AUSCULTATION: clear to auscultation bilaterally Cardio: COMMON NORMALS: regular rate and regular rhythm RATE: regular rate RHYTHM: regular rhythm GI: COMMON NORMALS: Normal to inspection, nondistended, normoactive bowel sounds present Extremity: COMMON NORMALS: no pedal edema Neuro: NURYS COMA SCALE: document GCS findings Nurys coma scale eye opening: Spontaneous Nurys coma scale verbal response: Orientated Nurys coma scale motor response: Obey commands Nurys coma scale total score: 15 SENSORY EXAM: Yes extremities (intact) Psych: COMMON NORMALS: speech normal SPEECH: Yes normal speech Skin: COMMON NORMALS: no rashes or lesions noted GENERAL SKIN EXAM: no rashes or lesions noted Course Vital Signs: Vital signs: Vital Signs Temperature 98.2 F 04/27/25 18:44 Pulse Rate 85 04/27/25 18:44 Respiratory Rate 18 04/27/25 18:44 Blood Pressure 125/80 04/27/25 18:44 Pulse Oximetry 96 04/27/25 18:44 Oxygen Delivery Me thod Room Air 04/27/25 18:44 MDM - Psych Medical Decision Making This patient does not have a home currently. She has her belongings with her. She had declined housing at the crisis center earlier in the week. She has prescription waiting at the pharmacy for risperidone, which she takes. She is not homicidal or suicidal. She does not meet admission requirements either medically on my exam or psychiatrically. She will be allowed discharge. No radiology studies performed this visit Discharge Plan Discharge Patient Disposition: Home Clinical Impression: Depression with anxiety Condition: Stable Prescriptions: No Action celecoxib [Celebrex] 200 mg capsule 200 mg PO BID Qty: 60 0RF hydroxyzine HCl 25 mg tablet 25 mg PO BEDTIME PRN (Reason: insomnia) Qty: 30 0RF risperidone 0.5 mg tablet 0.5 mg PO BID Qty: 30 1RF gabapentin 300 mg capsule 300 mg PO BEDTIME Qty: 30 1RF ibuprofen 800 mg tablet 800 mg PO TID PRN (Reason: Pain) acetaminophen [Tylenol Extra Strength] 500 mg Tablet 500 - 1,000 mg PO PRN Qty: 30 0RF Discharge Orders: Discharge ED (Routine); Ordered 04/27/25 Ordered By: Noel Kevin Referrals: Amalia Fox FNP [Primary Care Provider, Nurse Practitioner] - 1-3 days Patient Instructions: Depression (ED), Opioid Safety, Pain Management Activity Restrictions/Additional Instructions: You have passed a medical screening exam, and have been found not to meet criteria for admission. Call your doctor Tuesday morning for a follow-up appointment. Print Language: Hungarian Coding Level of Care Code ED Ad Terminal Makeup Operator for Eli Cristobal
--- NOTE | 2025-04-27 18:54 | PC.NURSE ---
Dr. Kevin went to speak with patient and patient refused to speak with him until she gets in a room
== END 2025-04-27 20:00 | disposition home or self-care (01) ==
PROVIDERS: Emergency Provider Emergency Medicine; PCP Nurse Practitioner
DX: F32.A Depression, unspecified (principal); F41.9 Anxiety disorder, unspecified
CPT/HCPCS: 99281

== ENCOUNTER 2025-04-27 20:03 | Emergency (ER) | payer OTHER, MEDICAID, SELFPAY ==
[2025-04-27 20:10] VITALS: BP 146/83; PULSE 104; RESP 16; TEMP 36.3; O2SAT 98; BMI 30.4
[2025-04-27 20:50] LABS: Basophils # 0.1 10^3/uL (0.0-0.1); Basophils % 0.7 %; Eosinophils # 0.1 10^3/uL (0.0-0.8); Eosinophils % 1.2 %; Hematocrit 43.5 % (36-47); Lymphocytes # 2.7 10^3/uL (0.8-4.8); Lymphocytes % 32.5 %; Mean Corpuscular HGB Conc 33.8 g/dL (30-55); Mean Corpuscular Hemoglobin 30.8 pg (27-33); Mean Corpuscular Volume 91.2 fl (85-98); Mean Platelet Volume 9.9 fL (7.4-10.4); Monocytes # 0.6 10^3/uL (0.2-0.9); Monocytes % 7.5 %; Neutrophils # 4.87 10^3/uL (1.8-7.7); Neutrophils % 57.7 %; Nucleated Red Blood Cells % 0 %; Platelet Count 230 10^3/cmm (157-399); Red Blood Count 4.77 10^6/uL (3.85-5.65); Red Cell Distribution Width 12.9 % (12.1-15.1); White Blood Count 8.43 10^3/uL (3.29-11.43)
[2025-04-27 21:08] LABS: Alanine Aminotransferase 94 U/L (0-33); Albumin Level 4.1 g/dL (3.5-5.2); Alkaline Phosphatase 104 U/L (35-105); Anion Gap 19.5 (5-19); Aspartate Amino Transferase 68 U/L (0-32); Blood Urea Nitrogen 8 mg/dL (6-20); Calcium 8.9 mg/dL (8.5-10.5); Carbon Dioxide 18 mmol/L (22-29); Chloride 106 mmol/L (98-107); Creatinine Clr Calc Pharmacy 135.0891; Globulin 3.3 g/dL (1.3-4.6); Glomerular Filtration Rate 106.7 mL/min (90-130); Glucose 118 mg/dL (65-115); Osmolality Calculated 289 mOsm/kg (285-295); Potassium 3.5 mmol/L (3.5-5.1); Sodium 140 mmol/L (136-145); Total Bilirubin 0.4 mg/dL (0.15-1.2); Total Protein 7.4 g/dL (6.6-8.7)
[2025-04-27 21:09] LABS: Lactic Sepsis W/Reflex 1.5 mmol/L (0.5-2.2)
[2025-04-27 22:19] LABS: Bilirubin Urine Negative (Negative); Blood Urine Negative (Negative); Glucose Urine UA Negative (Normal); Ketones Urine Negative (Negative); Leukocyte Esterase Urine Negative (Negative); Nitrate Urine Negative (Negative); Protein Urine Negative (Negative); Specific Gravity, Urine 1.008 (1.005-1.030); Urine Appearance Clear (CLEAR); Urine Color Yellow (Yellow); Urobilinogen Urine 0.2 mg/dL (Negative)
[2025-04-27 22:24] LABS: Bacteria Urine None Seen /hpf; Hyaline Casts Urine 0-4 /lpf; RBC Urine 0-2 /hpf (0-2); Squamous Epithelial Cell Urine 0-5 /hpf (0-5); WBC Urine 0-5 /hpf (0-5)
--- NOTE | 2025-04-27 23:06 | ED_ITS ---
HPI - Abdominal Pain 2 General: Chief Complaint: Abdominal Pain Stated Complaint: Lower R ABD Time Seen by Provider: 04/27/25 22:43 History of Present Illness: 49-year-old female whom I have already s een once in my shift. She checked back in from the waiting room after prior discharge, now complaining of abdominal pain. She also says that I may have had a stroke . She is complaining of pain to her left arm, and bilateral legs. No numbness or tingling. No significant weakness, at least specific weakness, as she says I am weak all over . No fever. She remains nonhomicidal and nonsuicidal. Related Data Home Medications ?Medication ?Instructions ?Recorded ?Confirmed ibuprofen 800 mg tablet 800 mg PO TID PRN Pain 03/2707/13/24 Previous Rx's ?Medication ?Instructions ?Recorded hydroxyzine HCl 25 mg tablet 25 mg PO BEDTIME PRN inso mnia #30 06/05/24 tabs risperidone 0.5 mg tablet 0.5 mg PO BID #30 tabs 06/05 celecoxib 200 mg capsule (Celebrex) 200 mg PO BID #60 caps 07/13/24 gabapentin 300 mg capsule 300 mg PO BEDTIME #30 caps 0 08/09/24 acetaminophen 500 mg tablet 500 - 1,000 mg (1 - 2 x 50 0 mg) PO 04/22/25 (Tylenol Extra Strength) PRN #30 tabs Allergies Allergy/AdvReac Type Severity Reaction Status Date / Time bee venom protein (honey bee) Allergy ALGY-Hives Verified 07/13/24 13:57 doxycycline Allergy ALGY-Hives Verified 07/13/24 13:57 famotidine Allergy ADR-Itching Verified 07/13/24 13:57 PFSH ED 2 PFSH: Social History Smoking and tobacco/nicotine status: never used tobacco/nicotine Physical Exam 2 Const: COMMON NORMALS: no acute distress GENERAL APPEARANCE: cooperative; not ill appearing and not frail appearing HENMT: COMMON NORMALS: normocephalic, atraumatic and Normal external nose present HEAD & SCALP: normocephalic and atraumatic FACE & SINUS: normal facial exam and face symmetric NOSE: Normal external nose present Eye: COMMON NORMALS: Equal, round and reactive pupils present and EOMs intact bilaterally PUPIL: Yes Equal, round and reactive pupils present Neck/C-Spine: GENERAL: Yes trachea midline Chest: CHEST: Yes Symmetrical chest wall rise Resp: COMMON NORMALS: normal respiratory effort, No retractions, No use of accessory muscles and clear to auscultation bilaterally AUSCULTATION: clear to auscultation bilaterally Cardio: COMMON NORMALS: regular rate and regular rhythm RATE: regular rate RHYTHM: regular rhythm GI: COMMON NORMALS: Normal to inspection, nondistended, normoactive bowel sounds present Extremity: COMMON NORMALS: no pedal edema Neuro: NURYS COMA SCALE: document GCS findings Nurys coma scale eye opening: Spontaneous Cooper coma scale verbal response: Orientated Cooper coma scale motor response: Obey commands Cooper coma scale total score: 15 S ENSORY EXAM: Yes extremities (intact) Psych: COMMON NORMALS: speech normal SPEECH: Yes normal speech Skin: COMMON NORMALS: no rashes or lesions noted GENERAL SKIN EXAM: no rashes or lesions noted Course 2 Vital Signs: Vital signs: Vital Signs Temperature 97.4 F L 04/27/25 20:10 Pulse Rate 76 04/27/25 23:26 Respiratory Rate 18 04/27/25 23:26 Blood Pressure 130/74 04/27/25 23:26 Pulse Oximetry 95 04/27/25 23:26 Oxygen Delivery Me thod Room Air 04/27/25 23:13 MDM - Abdominal Pain Medical Decision Making This patient has no focal belly tenderness. She has no symptoms of stroke. Her laboratory is benign. When asked why she continues to check in in the emergency department, she states that she does not have a place to go. She will be discharged. She was told that we do not admit patients for social reasons. Lab Data 04/27/25 20:45 04/27/25 20:45 Labs/Radiology: Laboratory Results WBC 8.43 10^3/uL (3.29-11.43) 04/27/25 20:45 RBC 4.77 10^6/uL (3.85-5.65) 04/27/25 20:45 Hgb 14.70 g/dL (11.27-16.99) 04/27/25 20:45 Hct 43.5 % (36-47) 04/27/25 20:45 MCV 91.2 fl (85-98) 04/27/25 20:45 MCH 30.8 pg (27-33) 04/27/25 20:45 MCHC 33.8 g/dL (30-55) 04/27/25 20:45 RDW 12.9 % (12.1-15.1) 04/27/25 20:45 Plt Count 230 10^3/cmm (157-399) 04/27/25 20:45 MPV 9.9 fL (7.4-10.4) 04/27/25 20:45 Neut % (Auto) 57.7 % 04/27/25 20:45 Lymph % (Auto) 32.5 % 04/27/25 20:45 [place] % (Auto) 7.5 % 04/27/25 20:45 Eos % (Auto) 1.2 % 04/27/25 20:45 Baso % (Auto) 0.7 % 04/27/25 20:45 Neut # (Auto) 4.87 10^3/uL (1.8-7.7) 04/27/25 20:45 Lymph # (Auto) 2.7 10^3/uL (0.8-4.8) 04/27/25 20:45 [place] # (Auto) 0.6 10^3/uL (0.2-0.9) 04/27/25 20:45 Eos # (Auto) 0.1 10^3/uL (0.0-0.8) 04/27/25 20:45 Baso # (Auto) 0.1 10^3/uL (0.0-0.1) 04/27/25 20:45 Nucleated RBC % (auto) 0 % 04/27/25 20:45 Nucleated RBCs # 0.0 /100WBC 04/27/25 20:45 Sodium 140 mmol/L (136-145) 04/27/25 20:45 Potassium 3.5 mmol/L (3.5-5.1) 04/27/25 20:45 Chloride 106 mmol/L (98-107) 04/27/25 20:45 Carbon Dioxide 18 mmol/L (22-29) L 04/27/25 20:45 Anion Gap 19.5 (5-19) H 04/27/25 20:45 BUN 8 mg/dL (6-20) 04/27/25 20:45 Creatinine 0.6 mg/dL (0.5-0.9) 04/27/25 20:45 GFR Calculation 106.7 mL/min (90-130) 04/27/25 20:45 Glucose 118 mg/dL (65-115) H 04/27/25 20:45 Calculated Osmolality 289 mOsm/kg (285-295) 04/27/25 20:45 Lactic Acid 1.5 mmol/L (0.5-2.2) 04/27/25 20:45 Calcium 8.9 mg/dL (8.5-10.5) 04/27/25 20:45 Total Bilirubin 0.4 mg/dL (0.15-1.2) 04/27/25 20:45 AST 68 U/L (0-32) H 04/27/25 20:45 ALT 94 U/L (0-33) H 04/27/25 20:45 Alkaline Phosphatase 104 U/L (35-105) 04/27/25 20:45 C-Reactive Protein 3.0 mg/L (0.0-4.9) 04/27/25 20:45 Total Protein 7.4 g/dL (6.6-8.7) 04/27/25 20:45 Albumin 4.1 g/dL (3.5-5.2) 04/27/25 20:45 Globulin 3.3 g/dL (1.3-4.6) 04/27/25 20:45 Urine Color Yellow (Yellow) 04/27/25 21:49 Urine Appearance Clear (CLEAR) 04/27/25 21:49 Urine pH 6.0 (5-7) 04/27/25 21:49 Ur Specific [place] 1.008 (1.005-1.030) 04/27/25 21:49 Urine Protein Negative (Negative) 04/27/25 21:49 Urine Glucose (UA) Negative (Normal) 04/27/25 21:49 Urine Ketones Negative (Negative) 04/27/25 21:49 Urine Blood Negative (Negative) 04/27/25 21:49 Urine Nitrate Negative (Negative) 04/27/25 21:49 Urine Bilirubin Negative (Negative) 04/27/25 21:49 Urine Urobilinogen 0.2 mg/dL (Negative) 04/27/25 21:49 Ur Leukocyte Esterase Negative (Negative) 06/14/25 21:49 Urine RBC 0-2 /hpf (0-2) 04/27/25 21:49 Urine WBC 0-5 /hpf (0-5) 04/27/25 21:49 Ur Squamous Epith Cells 0-5 /hpf (0-5) 04/27/25 21:49 Amorphous Sediment Not Reportable 04/27/25 21:49 Urine Bacteria None seen /hpf (NONE) 04/27/25 21:49 Hyaline Casts 0-4 /lpf H 04/27/25 21:49 No radiology studies performed this visit Discharge Plan Discharge Patient Disposition: Home Clinical Impression: Abdominal pain Condition: Stable Prescriptions: No Action celecoxib [Celebrex] 200 mg capsule 200 mg PO BID Qty: 60 0RF hydroxyzine HCl 25 mg tablet 25 mg PO BEDTIME PRN (Reason: insomnia) Qty: 30 0RF risperidone 0.5 mg tablet 0.5 mg PO BID Qty: 30 1RF gabapentin 300 mg capsule 300 mg PO BEDTIME Qty: 30 1RF ibuprofen 800 mg tablet 800 mg PO TID PRN (Reason: Pain) acetaminophen [Tylenol Extra Strength] 500 mg Tablet 500 - 1,000 mg PO PRN Qty: 30 0RF Discharge Orders: Discharge ED (Routine); Ordered 04/27/25 Ordered By: Noel Kevin Referrals: Amalia Fox FNP [Primary Care Provider, Nurse Practitioner] - 1-3 days Patient Instructions: Abdominal Pain (ED), Opioid Safety, Pain Management Activity Restrictions/Additional Instructions: Call your doctor Tuesday for a follow-up appointment Print Language: Colombian Coding Level of Care Code ED Delivery Helper for Eli Cristobal
[2025-04-27 23:13] VITALS: BP 138/77; PULSE 82; RESP 18; O2SAT 93
[2025-04-27 23:26] VITALS: BP 130/74; PULSE 76; RESP 18; O2SAT 95
== END 2025-04-27 23:28 | disposition home or self-care (01) ==
PROVIDERS: Emergency Medicine; Emergency Provider Emergency Medicine; PCP Nurse Practitioner
DX: R10.9 Unspecified abdominal pain (principal)
CPT/HCPCS: 36415; 80053; 81001; 83605; 85025; 86140; 99283

== ENCOUNTER 2025-06-21 12:17 | Inpatient (IN) | payer OTHER, MEDICAID, SELFPAY ==
[2025-06-21 12:20] VITALS: BP 122/66; PULSE 106; RESP 20; TEMP 36.9; O2SAT 94; BMI 29.5
--- NOTE | 2025-06-21 13:03 | ED.C_ITS ---
HPI - Psych 2 General: Chief Complaint: Psychiatric Symptoms Stated Complaint: 96 Time Seen by Provider: 06/21/25 12:18 History of Present Illness: 49-year-old female who presents to the e mergency room by ambulance with psychiatric concerns. She was brought here from a crisis center. Apparently she was there yesterday and again today but when she gets there she becomes very paranoid and would not speak to anyone. The friend that brought her filled out and affidavit along with 2 members of the crisis unit but felt she may becoming a danger to herself. When I examined the patient she seems to have no idea what is going on. She does not know why she is here. When I asked her about going to the crisis center she says she was never there. Related Data Home Medications ?Medication ?Instructions ?Recorded ?Confirmed ibuprofen 800 mg tablet 800 mg PO TID PRN Pain 03/2707/13/24 Previous Rx's ?Medication ?Instructions ?Recorded hydroxyzine HCl 25 mg tablet 25 mg PO BEDTIME PRN inso mnia #30 06/05/24 tabs risperidone 0.5 mg tablet 0.5 mg PO BID #30 tabs 06/05 celecoxib 200 mg capsule (Celebrex) 200 mg PO BID #60 caps 07/13/24 gabapentin 300 mg capsule 300 mg PO BEDTIME #30 caps 0 08/09/24 acetaminophen 500 mg tablet 500 - 1,000 mg (1 - 2 x 50 0 mg) PO 04/22/25 (Tylenol Extra Strength) PRN #30 tabs Allergies Allergy/AdvReac Type Severity Reaction Status Date / Time bee venom protein (honey bee) Allergy ALGY-Hives Verified 07/13/24 13:57 doxycycline Allergy ALGY-Hives Verified 07/13/24 13:57 famotidine Allergy ADR-Itching Verified 07/13/24 13:57 Review of Systems 2 Narrative: Constitutional symptoms: Negative except as documented in HPI. Skin symptoms: Negative except as documented in HPI. Eye symptoms: Negative except as documented in HPI. ENMT symptoms: Negative except as documented in HPI. Respiratory symptoms: Negative except as documented in HPI. Cardiovascular symptoms: Negative except as documented in HPI. Gastrointestinal symptoms: Negative except as documented in HPI. Genitourinary symptoms: Negative except as documented in HPI. Musculoskeletal symptoms: Negative except as documented in HPI. Neurologic symptoms: Negative except as documented in HPI. Psychiatric symptoms: Negative except as documented in HPI. Endocrine symptoms: Negative except as documented in HPI. PFSH ED 2 PFSH: Social History Smoking and tobacco/nicotine status: never used tobacco/nicotine Physical Exam 2 Narrative: EXAM NARRATIVE: General: Alert, no acute distress. Skin: Warm, dry. Head: Normocephalic, atraumatic. Neck: Supple, trachea midline. Eye: Extraocular movements are intact. Ears, nose, mouth and throat: mucosa moist. Cardiovascular: Regular, Normal peripheral perfusion. Respiratory: Lungs are clear to auscultation, respirations are non-labored, breath sounds are equal, Symmetrical chest wall expansion. Gastrointestinal: Soft, Nontender, Non distended Musculoskeletal: Normal ROM, no deformity. Neurological: Alert and oriented, No focal neurological deficit observed. Psychiatric: Odd affect. Continues to deny any idea what is going home Course 2 Vital Signs: Vital signs: Vital Signs Temperature 98.5 F 06/21/25 12:20 Pulse Rate 106 H 06/21/25 12:20 Respiratory Rate 20 H 06/21/25 12:20 Blood Pressure 122/66 06/21/25 12:20 Pulse Oximetry 94 06/21/25 12:20 Oxygen Delivery Me thod Nasal Cannula 06/21/25 12:20 MDM - Psych Medical Decision Making Medical decision making: Differential diagnosis for patient with reported psychosis with plan for psychiatric admission including but not limited to and based on the above HPI, review of systems and physical exam: concerns for infection, alcohol intoxication, cardiac issues or other medical problems prior to psychiatric admission. Orders placed to evaluate differential diagnosis based on the above differential, HPI and physical exam labwork, ekg ordered to evaluate the pathologies and to clear the patient medically prior to psychiatric admission EKG: Time 1316. Rate 98. Normal sinus rhythm, No ST-T changes, no ectopy, normal IL & QRS intervals, This was reviewed and interpreted by myself the ER physician at 1320 Lab Review: Laboratory results were reviewed and interpreted by myself the emergency room physician. - Medically cleared. - EKG shows no ischemic changes. - Blood alcohol level is negative, as well as salicylate and Tylenol. - Drug screen is positive for marijuana - No signs of infection, urinalysis clear and white count is not elevated - No anemia. - BUN and creatinine are within normal limits. I reviewed the patient's medical record. Consultation: I spoke with Dr. Ferrer who is on-call for psychiatry who agrees to admission. Assessment and plan: Psychosis Paranoia ?Patient was placed on 96-hour hold based on affidavits from [place] and crisis center -Admission to neuropsychiatric unit for continued evaluation and treatment. - All lab work was reviewed and interpreted personally by myself, the ER physician - Evaluation and treatment of this problem were appropriate in the emergency setting Lab Data 06/21/25 13:02 06/21/25 13:35 Laboratory Results WBC 8.52 10^3/uL (3.29-11.43) 06/21/25 13:02 RBC 5.11 10^6/uL (3.85-5.65) 06/21/25 13:02 Hgb 16.10 g/dL (11.27-16.99) 06/21/25 13:02 Hct 46.8 % (36-47) 06/21/25 13:02 MCV 91.6 fl (85-98) 06/21/25 13:02 MCH 31.5 pg (27-33) 06/21/25 13:02 MCHC 34.4 g/dL (30-55) 06/21/25 13:02 RDW 12.5 % (12.1-15.1) 06/21/25 13:02 Plt Count 213 10^3/cmm (157-399) 06/21/25 13:02 MPV 10.3 fL (7.4-10.4) 06/21/25 13:02 Neut % (Auto) 59.3 % 06/21/25 13:02 Lymph % (Auto) 31.9 % 06/21/25 13:02 [place] % (Auto) 7.0 % 06/21/25 13:02 Eos % (Auto) 0.8 % 06/21/25 13:02 Baso % (Auto) 0.8 % 06/21/25 13:02 Neut # (Auto) 5.04 10^3/uL (1.8-7.7) 06/21/25 13:02 Lymph # (Auto) 2.7 10^3/uL (0.8-4.8) 06/21/25 13:02 [place] # (Auto) 0.6 10^3/uL (0.2-0.9) 06/21/25 13:02 Eos # (Auto) 0.1 10^3/uL (0.0-0.8) 06/21/25 13:02 Baso # (Auto) 0.1 10^3/uL (0.0-0.1) 06/21/25 13:02 Nucleated RBC % (auto) 0 % 06/21/25 13:02 Nucleated RBCs # 0.0 /100WBC 06/21/25 13:02 Sodium 139 mmol/L (136-145) 06/21/25 13:35 Potassium 3.7 mmol/L (3.5-5.1) 06/21/25 13:35 Chloride 105 mmol/L (98-107) 06/21/25 13:35 Carbon Dioxide 21 mmol/L (22-29) L 06/21/25 13:35 Anion Gap 16.7 (5-19) 06/21/25 13:35 BUN 10 mg/dL (6-20) 06/21/25 13:35 Creatinine 0.6 mg/dL (0.5-0.9) 06/21/25 13:35 GFR Calculation 106.7 mL/min (90-130) 06/21/25 13:35 Glucose 101 mg/dL (65-115) 06/21/25 13:35 Calculated Osmolality 287 mOsm/kg (285-295) 06/21/25 13:35 Calcium 8.9 mg/dL (8.5-10.5) 06/21/25 13:35 Total Bilirubin 0.3 mg/dL (0.15-1.2) 06/21/25 13:35 AST 61 U/L (0-32) H 06/21/25 13:35 ALT 86 U/L (0-33) H 06/21/25 13:35 Alkaline Phosphatase 118 U/L (35-105) H 06/21/25 13:35 Total Protein 7.3 g/dL (6.6-8.7) 06/21/25 13:35 Albumin 3.9 g/dL (3.5-5.2) 06/21/25 13:35 Globulin 3.4 g/dL (1.3-4.6) 06/21/25 13:35 TSH 0.31 uIU/mL (0.27-4.20) 06/21/25 13:35 HCG, Qual Negative (Negative) 06/21/25 13:00 Urine Color Yellow (Yellow) 06/21/25 13:00 Urine Appearance Clear (CLEAR) 06/21/25 13:00 Urine pH 6.5 (5-7) 06/21/25 13:00 Ur Specific [place] 1.011 (1.005-1.030) 06/21/25 13:00 Urine Protein Negative (Negative) 06/21/25 13:00 Urine Glucose (UA) Negative (Normal) 06/21/25 13:00 Urine Ketones Negative (Negative) 06/21/25 13:00 Urine Blood Negative (Negative) 06/21/25 13:00 Urine Nitrate Negative (Negative) 06/21/25 13:00 Urine Bilirubin Negative (Negative) 06/21/25 13:00 Urine Urobilinogen 1.0 mg/dL (Negative) 06/21/25 13:00 Ur Leukocyte Esterase Negative (Negative) 06/21/25 13:00 Urine RBC 0-2 /hpf (0-2) 06/21/25 13:00 Urine WBC 0-5 /hpf (0-5) 06/21/25 13:00 Ur Squamous Epith Cells 0-5 /hpf (0-5) 06/21/25 13:00 Amorphous Sediment Not Reportable 06/21/25 13:00 Urine Bacteria None seen /hpf (NONE) 06/21/25 13:00 Hyaline Casts 0-4 /lpf H 06/21/25 13:00 Salicylates 0.8 mg/dL (3-10) L 06/21/25 13:35 Urine Opiates Screen Negative ng/mL (Negative) 06/21/25 13:00 Acetaminophen < 5.0 ug/mL (10-30) L 06/21/25 13:35 Ur Barbiturates Screen Negative ng/mL (Negative) 06/21/25 13:00 Ur Phencyclidine Scrn Negative ng/mL (Negative) 06/21/25 13:00 Ur Amphetamines Screen Negative ng/mL (Negative) 06/21/25 13:00 U Benzodiazepines Scrn Negative ng/mL (Negative) 06/21/25 13:00 Urine Cocaine Screen Negative ng/mL (Negative) 06/21/25 13:00 U Marijuana (THC) Screen Positive ng/mL (Negative) H 06/21/25 13:00 Ethyl Alcohol < 10 mg/dL (0-10) 06/21/25 13:35 No radiology studies performed this visit Discharge Plan Discharge Patient Disposition: Admitted As Inpatient Clinical Impression: Acute psychosis Condition: Stable Coding Level of Care Code ED Fundraising Coordinator for Eli Cristobal
[2025-06-21 13:11] LABS: Hematocrit 46.8 % (36-47); Hemoglobin 16.10 g/dL (11.27-16.99); Mean Corpuscular HGB Conc 34.4 g/dL (30-55); Mean Corpuscular Hemoglobin 31.5 pg (27-33); Mean Corpuscular Volume 91.6 fl (85-98); Nucleated Red Blood Cells % 0 %; Platelet Count 213 10^3/cmm (157-399); Red Blood Count 5.11 10^6/uL (3.85-5.65); White Blood Count 8.52 10^3/uL (3.29-11.43)
--- NOTE | 2025-06-21 13:15 | PC.NURSE ---
Involuntary 96 hour hold rights read and reviewed with patient. Woo from security present during reading of rights. Patient verbalized understandings and copy of rights given to patient.
--- NOTE | 2025-06-21 13:16 | ECG_ITS ---
[facility] Pat Name: Dao Rushing Department: Room: Gender: Female Clearance Representative: : 1975 Requested By: Kathy Fair Order Number: [id number] Ninfa MD: Maria Alejandra Gavin M.D. Measurements Intervals [place] Rate: 98 P: 63 DE: 162 QRS: 74 QRSD: 60 T: 63 QT: 334 QTc: 427 Interpretive Statements SINUS RHYTHM LOW QRS VOLTAGE IN PRECORDIAL LEADS [QRS DEFLECTION < 1.0 mV IN CHEST LEADS] NONSPECIFIC T-WAVE ABNORMALITY Compared to ECG 08/21/2021 02:31:00 Low QRS voltage now present T-wave abnormality now present Electronically Signed On 06-21-2025 13:44:09 CDT by Maria Alejandra Gavin M.D. [id number]
[2025-06-21 13:18] LABS: Glucose Urine UA Negative (Normal); Nitrate Urine Negative (Negative); Specific Gravity, Urine 1.011 (1.005-1.030)
[2025-06-21 13:23] LABS: Add Urine Microscopic? YES
[2025-06-21 13:24] LABS: PCP Screen Urine Negative (Negative)
[2025-06-21 13:25] LABS: HCG Qualitative Urine. Negative (Negative)
[2025-06-21 14:14] LABS: Alanine Aminotransferase 86 U/L (0-33); Albumin Level 3.9 g/dL (3.5-5.2); Alkaline Phosphatase 118 U/L (35-105); Anion Gap 16.7 (5-19); Aspartate Amino Transferase 61 U/L (0-32); Blood Urea Nitrogen 10 mg/dL (6-20); Calcium 8.9 mg/dL (8.5-10.5); Carbon Dioxide 21 mmol/L (22-29); Chloride 105 mmol/L (98-107); Creatinine Clr Calc Pharmacy 137.5871; Globulin 3.4 g/dL (1.3-4.6); Glucose 101 mg/dL (65-115); Osmolality Calculated 287 mOsm/kg (285-295); Potassium 3.7 mmol/L (3.5-5.1); Salicylate 0.8 mg/dL (3-10); Sodium 139 mmol/L (136-145); Thyroid Stimulating Hormone 0.31 uIU/mL (0.27-4.20); Total Protein 7.3 g/dL (6.6-8.7)
[2025-06-21 14:15] LABS: Acetaminophen < 5.0 ug/mL (10-30); Alcohol Level < 10 mg/dL (0-10)
[2025-06-21 15:05] VITALS: BP 132/78; PULSE 80; RESP 16; O2SAT 98
--- NOTE | 2025-06-21 16:01 | PC.NURSE ---
Patient came in very paranoyed. Pt also seemed very confused During assessment she acted strangely anytime something new was introduced. Assessment showed no signs of skin damage.
--- NOTE | 2025-06-21 16:08 | PC.ADMIT ---
[address] Admission Note: The patient,Dao Rushing,49 y/o, was given written information regarding hospital policies, unit procedures and contact persons. Patient's smoking status: never smoked. Vital Signs - 8 hr 06/21/25 12:20 06/21/25 15:05 06/21/25 15:20 Temperature 98.5 F Pulse Rate 106 H 80 Respiratory Rate 20 H 16 Blood Pressure 122/66 132/78 Pulse Oximetry 94 98 Oxygen Delivery Method Nasal Cannula Room Air Patient came in very paranoyed. Pt also seemed very confused During assessment she acted strangely anytime something new was introduced. Assessment showed no signs of skin damage.
--- NOTE | 2025-06-21 16:57 | PC.NURSE ---
Pt. had scarring on foreams
--- NOTE | 2025-06-21 21:48 | PC.NURSE ---
pt refused vs charge nurse notified, resp 18
--- NOTE | 2025-06-22 06:32 | PC.NURSE ---
pt refused vs, charge nurse notified, resp 18
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
--- NOTE | 2025-06-22 20:12 | PC.NURSE ---
pt refused vs, nurse notified, resp 18
--- NOTE | 2025-06-23 06:45 | PC.NURSE ---
pt refused vs and weight, charge nurse notified resp 19
[2025-06-23] MEDS: paliperidone ER 6 mg Tablet PO (10:41)
[2025-06-23 15:56] VITALS: BP 132/94; PULSE 83; RESP 16; TEMP 36.7; O2SAT 96
--- NOTE | 2025-06-23 16:01 | PC.NURSE ---
During visit with a friend, it is made known to ns that she is a diabetic. Patient states she is diet controlled only and does not check her blood sugars at home, nor take any medications or insulin. She is resistant but allows this nurse to check her blood sugar now, which is 112. She states she will not allow further blood sugar testing, however. Diet changed from regular to ADA Carb consistent. Will notify physician.
--- NOTE | 2025-06-23 16:21 | P.NPUPN_ITS ---
Subjective NPU 2 Subjective: Patient presented today reporting that she is feeling okay and ready to go home. She discussed that her family members saying that she will not have a ride to her appointments so she has not been worried about missing things. We discussed that the social work team be back tomorrow and that we could talk about to just 6 of how things would go after discharge but that we need to get things stabilized from the standpoint of her medications. She denied any side effects of her medication at this point. Mental Status Exam 2 MSE Comments: This is an overweight versus obese white female in hospital scrubs with limited grooming and eye contact. No abnormal movements except for psychomotor retardation. Mostly uncooperative with exam in mild to moderate distress. Speech was decreased rate and volume and lack spontaneity. Mood described as fine, affect odd and confused. Thought process linear but at times disorganized. Thought content: Patient denied suicidal or homicidal ideation, there were no delusions reported but she appeared quite guarded and confused, she did not report any auditory or visual hallucinations and she appeared at times like she might be attending to internal stimuli. Attention and concentration were limited and memory appeared mostly unreliable but no more formally tested. She is alert and oriented times person and place. Insight, judgment and impulse control are impaired. Vitals/I&O/Wt Last Vital Signs Temp 98.1 F 06/23/25 15:56 Pulse 83 06/23/25 15:56 Resp 16 06/23/25 15:56 BP 132/94 06/23/25 15:56 Pulse Ox 96 06/23/25 15:56 O2 Del Method Room Air 06/23/25 15:56 Data NPU 06/21/25 13:02 06/21/25 13:35 A&P Assessment and plan 1. Depression with anxiety: 2. Acute psychosis: 3. Cannabis use disorder: 4. Altered mental status: Plan: This is a 49-year-old white female with some clear past psychiatric history but none clearly for psychosis in our system but with concerns for mood or psychosis noteworthy with treatment with Invega Sustenna who presents appearing psychotic, positive for cannabis and on a 96-hour hold reporting being confused about why she needs to be here with likely evidence of medication nonadherence. 1. Restart Invega oral and hopefully the Invega Sustenna with patient's permission. 2. Encourage individual, group and milieu therapies. 3. Continue every 15 minute checks for safety. 4. Encourage sober living treatment after discharge at the highest level of care to which she is willing to commit. 5. Obtain collateral information. 6. Observe against the backdrop of the 96-hour hold. PDMP PDMP Reviewed: Not Reviewed Involuntary Hold Information 2 Hold Status: Legal Status: 96 Hour Hold Date/Time Hold Expires: 06/27/25 @ 12:30 Attestations NPU 2 Medical Necessity Statement*: Inpatient hospitalization is medically necessary in the clinically appropriate intervention at this time. We will monitor/initiate medications and make changes as indicated. She will be in the hospital for over 2 midnights. Likely length of stay 5-7 days. Coding Level of Care Code Acute Code for [facility] Fwd Diagnoses Depression with anxiety F41.8 Acute psychosis F23 Cannabis use disorder F12.90 Altered mental status R41.82
--- NOTE | 2025-06-23 22:34 | PC.NURSE ---
pt refused, nurse notified, resp 18
--- NOTE | 2025-06-24 06:38 | PC.NURSE ---
pt refused vs, nurse notified, resp 17
[2025-06-24] MEDS: paliperidone ER 6 mg Tablet PO (07:47)
[2025-06-24 13:43] VITALS: BP 126/89; PULSE 81; RESP 16; TEMP 36.8; O2SAT 94
--- NOTE | 2025-06-24 17:00 | P.NPUPN_ITS ---
Subjective NPU 2 Subjective: Patient presented today reporting that she is doing okay. She continues to focus on being discharged and thinking that she was on the 3-month injection of Invega but verification is that it was 1 month Invega Sustenna and that it has been at least 2 months since she had her injection. We discussed the risks, benefits and alternatives of restarting the Invega Sustenna loading dose of 234 mg IM to the deltoid and she understood and agreed to proceed as is documented in this note. She denied any side effects of the medication. Mental Status Exam 2 MSE Comments: This is an overweight versus obese white female in hospital scrubs with limited grooming and eye contact. No abnormal movements except for psychomotor retardation. Mostly uncooperative with exam in mild to moderate distress. Speech was decreased rate and volume and lack spontaneity. Mood described as fine, affect odd and confused. Thought process linear but at times disorganized. Thought content: Patient denied suicidal or homicidal ideation, there were no delusions reported but she appeared quite guarded and confused, she did not report any auditory or visual hallucinations and she appeared at times like she might be attending to internal stimuli. Attention and concentration were limited and memory appeared mostly unreliable but no more formally tested. She is alert and oriented times person and place. Insight, judgment and impulse control are impaired. Vitals/I&O/Wt Last Vital Signs Temp 98.2 F 06/24/25 13:43 Pulse 81 06/24/25 13:43 Resp 16 06/24/25 13:43 BP 126/89 06/24/25 13:43 Pulse Ox 94 06/24/25 13:43 O2 Del Method Room Air 06/24/25 13:43 Data NPU 06/21/25 13:02 06/21/25 13:35 A&P Assessment and plan 1. Depression with anxiety: 2. Acute psychosis: 3. Cannabis use disorder: 4. Altered mental status: Plan: This is a 49-year-old white female with some clear past psychiatric history but none clearly for psychosis in our system but with concerns for mood or psychosis noteworthy with treatment with Invega Sustenna who presents appearing psychotic, positive for cannabis and on a 96-hour hold reporting being confused about why she needs to be here with likely evidence of medication nonadherence. 1. Restart Invega oral and hopefully the Invega Sustenna with patient's permission. Restarted Invega Sustenna 234 mg IM to deltoid for loading dose. Will need to give second loading dose within the next week. 2. Encourage individual, group and milieu therapies. 3. Continue every 15 minute checks for safety. 4. Encourage sober living treatment after discharge at the highest level of care to which she is willing to commit. 5. Obtain collateral information. 6. Observe against the backdrop of the 96-hour hold. PDMP PDMP Reviewed: Not Reviewed Involuntary Hold Information 2 Hold Status: Legal Status: 96 Hour Hold Date/Time Hold Expires: 06/27/25 @ 12:30 Attestations NPU 2 Medical Necessity Statement*: Inpatient hospitalization is medically necessary in the clinically appropriate intervention at this time. We will monitor/initiate medications and make changes as indicated. Likely length of stay 4-6 days. Coding Level of Care Code Acute Code for g Fwd Diagnoses Depression with anxiety F41.8 Acute psychosis F23 Cannabis use disorder F12.90 Altered mental status R41.82
[2025-06-24] MEDS: paliperidone palmitate 234 mg Syringe IM (17:39)
[2025-06-24 19:26] VITALS: RESP 18
--- NOTE | 2025-06-24 19:26 | PC.NURSE ---
Patient refused vitals nurse notified.
--- NOTE | 2025-06-25 05:26 | PC.NURSE ---
BEHAVIOR PATIENT HAS RESTED VERY WELL THIS NIGHT. PATIENT WAS SOMEWHAT GRUMPY AT THE START OF THE SHIFT, NOT WANTING TO BE BOTHERED BY STAFF FOR VITAL SIGNS OR ASSESSMENT. THIS NURSE WAS ABLE TO GET PATIENT TO TAKE HER NIGHT MED WITHOUT DIFFICULTY. PATIENT DID WAKE UP AROUND 4AM REQUESTING TEA AND LEMONAIDE.
[2025-06-25 06:00] VITALS: RESP 18
--- NOTE | 2025-06-25 06:27 | PC.NURSE ---
Patient refused vitals nurse was notified.
--- NOTE | 2025-06-25 11:13 | PC.NURSE ---
Pt stated that she would like to wait on taking her medications this morning until speaking with the Doctor about it. @ [phone]
[2025-06-25 14:00] VITALS: BP 105/66; PULSE 82; RESP 16; TEMP 37.3; O2SAT 92
--- NOTE | 2025-06-25 18:07 | P.NPUPN_ITS ---
Subjective NPU 2 Subjective: Patient presented today reporting that she is doing okay. We continued to discuss the plan to get her second injection prior to discharge. She seems to understand this and accepts that this is a reasonable approach now that she understands the process of getting the loading doses. She denied any side effects of the medication we discussed the plan to likely discharge her before the weekend after the second Invega Sustenna loading dose. Mental Status Exam 2 MSE Comments: This is an overweight versus obese white female in hospital scrubs with limited grooming and eye contact. No abnormal movements except for psychomotor retardation. Mostly uncooperative with exam in mild distress. Speech was decreased rate and volume and lack spontaneity. Mood described as fine, affect odd and less confused. Thought process linear but at times disorganized. Thought content: Patient denied suicidal or homicidal ideation, there were no delusions reported but she appeared quite guarded and confused, she did not report any auditory or visual hallucinations and she appeared at times like she might be attending to internal stimuli. Attention and concentration were limited and memory appeared mostly unreliable but no more formally tested. She is alert and oriented times person and place. Insight, judgment and impulse control are impaired. Vitals/I&O/Wt Last Vital Signs Temp 98.9 F 06/25/25 19:12 Pulse 83 06/25/25 19:12 Resp 20 H 06/25/25 19:12 BP 134/90 06/25/25 19:12 Pulse Ox 97 06/25/25 19:12 O2 Del Method Room Air 06/25/25 19:12 Data NPU 06/21/25 13:02 06/21/25 13:35 A&P Assessment and plan 1. Depression with anxiety: 2. Acute psychosis: 3. Cannabis use disorder: 4. Altered mental status: Plan: This is a 49-year-old white female with some clear past psychiatric history but none clearly for psychosis in our system but with concerns for mood or psychosis noteworthy with treatment with Invega Sustenna who presents appearing psychotic, positive for cannabis and on a 96-hour hold reporting being confused about why she needs to be here with likely evidence of medication nonadherence. 1. Restart Invega oral and hopefully the Invega Sustenna with patient's permission. Restarted Invega Sustenna 234 mg IM to deltoid for loading dose. Will need to give second loading dose within the next week but likely by Tuesday. 2. Encourage individual, group and milieu therapies. 3. Continue every 15 minute checks for safety. 4. Encourage sober living treatment after discharge at the highest level of care to which she is willing to commit. 5. Obtain collateral information. 6. Observe against the backdrop of the 96-hour hold. PDMP PDMP Reviewed: Not Reviewed Involuntary Hold Information 2 Hold Status: Legal Status: 96 Hour Hold Date/Time Hold Expires: 06/27/25 @ 12:30 Attestations NPU 2 Medical Necessity Statement*: Inpatient hospitalization is medically necessary in the clinically appropriate intervention at this time. We will monitor/initiate medications and make changes as indicated. Likely length of stay 3-5 days. Coding Level of Care Code Acute Code for [facility] Fwd Diagnoses Depression with anxiety F41.8 Acute psychosis F23 Cannabis use disorder F12.90 Altered mental status R41.82
[2025-06-25 19:12] VITALS: BP 134/90; PULSE 83; RESP 20; TEMP 37.2; O2SAT 97
[2025-06-26 06:00] VITALS: RESP 16
--- NOTE | 2025-06-26 06:30 | PC.NURSE ---
pt refused vitals stated why are you waking me up this early for vitals, why so early nurse notifed
[2025-06-26] MEDS: paliperidone ER 6 mg Tablet PO (09:50)
--- NOTE | 2025-06-26 12:54 | P.NPUPN_ITS ---
Subjective NPU 2 Subjective: Patient presented today reporting that she is doing fine and she has arrangements for a ride excetra. She was asking about discharge and we once again discussed the fact that we would discharge her after she had had an injection so that we knew she was ready to go to the monthly injection timeframe and again explained to her that the only way she could go every 3 months of the medication is if she was stable for a few months with the Invega Sustenna to go to the less frequent dosing schedule with Invega Trinza. She denied any side effects of medications. Mental Status Exam 2 MSE Comments: This is an overweight versus obese white female in hospital scrubs with limited grooming and eye contact. No abnormal movements except for psychomotor retardation. Mostly uncooperative with exam in mild distress. Speech was decreased rate and volume and lack spontaneity. Mood described as fine, affect odd and less confused. Thought process linear but at times disorganized. Thought content: Patient denied suicidal or homicidal ideation, there were no delusions reported but she appeared quite guarded and confused, she did not report any auditory or visual hallucinations and she appeared at times like she might be attending to internal stimuli. Attention and concentration were limited and memory appeared mostly unreliable but no more formally tested. She is alert and oriented times person and place. Insight, judgment and impulse control are impaired. Vitals/I&O/Wt Last Vital Signs Temp 98.9 F 06/25/25 19:12 Pulse 83 06/25/25 19:12 Resp 16 06/26/25 06:00 BP 134/90 06/25/25 19:12 Pulse Ox 97 06/25/25 19:12 O2 Del Method Room Air 06/25/25 19:12 Data NPU 06/21/25 13:02 06/21/25 13:35 A&P Assessment and plan 1. Depression with anxiety: 2. Acute psychosis: 3. Cannabis use disorder: 4. Altered mental status: Plan: This is a 49-year-old white female with some clear past psychiatric history but none clearly for psychosis in our system but with concerns for mood or psychosis noteworthy with treatment with Invega Sustenna who presents appearing psychotic, positive for cannabis and on a 96-hour hold reporting being confused about why she needs to be here with likely evidence of medication nonadherence. 1. Restart Invega oral and hopefully the Invega Sustenna with patient's permission. Restarted Invega Sustenna 234 mg IM to deltoid for loading dose. Will need to give second loading dose within the next week but likely by Tuesday. 2. Encourage individual, group and milieu therapies. 3. Continue every 15 minute checks for safety. 4. Encourage sober living treatment after discharge at the highest level of care to which she is willing to commit. 5. Obtain collateral information. 6. Observe against the backdrop of the 96-hour hold. PDMP PDMP Reviewed: Not Reviewed Involuntary Hold Information 2 Hold Status: Legal Status: 96 Hour Hold Date/Time Hold Expires: 06/27/25 @ 12:30 Attestations NPU 2 Medical Necessity Statement*: Inpatient hospitalization is medically necessary in the clinically appropriate intervention at this time. We will monitor/initiate medications and make changes as indicated. Likely length of stay 2-4 days. Coding Level of Care Code Acute Code for [facility] Fwd Diagnoses Depression with anxiety F41.8 Acute psychosis F23 Cannabis use disorder F12.90 Altered mental status R41.82
[2025-06-26 14:00] VITALS: BP 103/77; PULSE 85; RESP 17; TEMP 36.8; O2SAT 94
[2025-06-26 20:31] VITALS: RESP 16
--- NOTE | 2025-06-26 20:31 | PC.NURSE ---
pt refused vitals
[2025-06-27 06:00] VITALS: RESP 16
[2025-06-27] MEDS: paliperidone ER 6 mg Tablet PO (08:31)
--- NOTE | 2025-06-27 12:46 | P.NPUPN_ITS ---
Subjective NPU 2 Subjective: Patient presented today reporting that she has been talking to a friend who she is going to move him with and everything is going fine she reports. This person is reportedly prepared to pick her up tomorrow and is going to be supportive of making sure she gets to her appointments for her wellness. She does report that this person will be giving her rides. We discussed how she could come to the crisis stabilization center if something happened with either a her medications not being filled or her not having someone who can give her her injection and and they will help her figure out the situation. She is looking forward to discharge tomorrow denied any side effects to medication. Mental Status Exam 2 MSE Comments: This is an overweight versus obese white female in hospital scrubs with limited grooming and eye contact. No abnormal movements except for psychomotor retardation. Mostly uncooperative with exam in mild distress. Speech was decreased rate and volume and lack spontaneity. Mood described as fine, affect odd and less confused. Thought process linear but at times disorganized. Thought content: Patient denied suicidal or homicidal ideation, there were no delusions reported but she appeared quite guarded and confused, she did not report any auditory or visual hallucinations and she appeared at times like she might be attending to internal stimuli. Attention and concentration were limited and memory appeared mostly unreliable but no more formally tested. She is alert and oriented times person and place. Insight, judgment and impulse control are impaired. Vitals/I&O/Wt Last Vital Signs Temp 98.3 F 06/26/25 14:00 Pulse 85 06/26/25 14:00 Resp 16 06/27/25 06:00 BP 103/77 06/26/25 14:00 Pulse Ox 94 06/26/25 14:00 O2 Del Method Room Air 06/25/25 19:12 Data NPU 06/21/25 13:02 06/21/25 13:35 A&P Assessment and plan 1. Depression with anxiety: 2. Acute psychosis: 3. Cannabis use disorder: 4. Altered mental status: Plan: This is a 49-year-old white female with some clear past psychiatric history but none clearly for psychosis in our system but with concerns for mood or psychosis noteworthy with treatment with Invega Sustenna who presents appearing psychotic, positive for cannabis and on a 96-hour hold reporting being confused about why she needs to be here with likely evidence of medication nonadherence. 1. Restart Invega oral and hopefully the Invega Sustenna with patient's permission. Restarted Invega Sustenna 234 mg IM to deltoid for loading dose. Will need to give second loading dose has been ordered for tomorrow. That means her next Invega Sustenna injection will be due 07/29/2025 156 mg IM. 2. Encourage individual, group and milieu therapies. 3. Continue every 15 minute checks for safety. 4. Encourage sober living treatment after discharge at the highest level of care to which she is willing to commit. 5. Obtain collateral information. 6. Observe against the backdrop of the 96-hour hold. Tentative plan for discharge tomorrow. PDMP PDMP Reviewed: Not Reviewed Involuntary Hold Information 2 Hold Status: Legal Status: 96 Hour Hold Date/Time Hold Expires: 06/27/25 @ 12:30 Attestations NPU 2 Medical Necessity Statement*: Inpatient hospitalization is medically necessary in the clinically appropriate intervention at this time. We will monitor/initiate medications and make changes as indicated. Likely length of stay 1-3 days. Coding Level of Care Code Acute Code for [facility] Fwd Diagnoses Depression with anxiety F41.8 Acute psychosis F23 Cannabis use disorder F12.90 Altered mental status R41.82
[2025-06-27 21:38] VITALS: BP 125/86; PULSE 72; RESP 18; TEMP 36.6; O2SAT 96
[2025-06-28 06:00] VITALS: BP 90/60; PULSE 54; RESP 18; TEMP 36.6; O2SAT 95
--- NOTE | 2025-06-28 08:33 | DCPLANNER ---
Imm was given to patient and rights explained and copy placed in pts file
[2025-06-28] MEDS: paliperidone palmitate 156 mg Syringe IM (10:07)
[2025-06-28 11:02] VITALS: BP 109/74; PULSE 89; RESP 16; O2SAT 98
[2025-06-28 14:00] VITALS: BP 138/90; PULSE 64; RESP 16; TEMP 36.7; O2SAT 94
== END 2025-06-28 14:30 | disposition home or self-care (01) | DRG 885 ==
LOC: ER 14:17 → NP 14:57
PROVIDERS: Admitting Provider Psychiatry & Neurology Psychiatry; Emergency Provider Emergency Medicine; PCP Nurse Practitioner; Visit Provider Psychiatry & Neurology Psychiatry
DX: F23 Brief psychotic disorder (principal); F12.90 Cannabis use, unspecified, uncomplicated; Z91.148 Patient's other noncompliance with medication regimen for other reason; G47.00 Insomnia, unspecified; E66.9 Obesity, unspecified; Z68.29 Body mass index [BMI] 29.0-29.9, adult; F41.9 Anxiety disorder, unspecified; F32.A Depression, unspecified; Z88.1 Allergy status to other antibiotic agents; Z87.820 Personal history of traumatic brain injury; Z83.6 Family history of other diseases of the respiratory system; Z83.3 Family history of diabetes mellitus; Z81.8 Family history of other mental and behavioral disorders; G89.29 Other chronic pain; G43.909 Migraine, unspecified, not intractable, without status migrainosus; M54.50 Low back pain, unspecified
CPT/HCPCS: 36415; 36416; 80053; 80306; 80307; 81001; 81025; 82962; 84443; 85025; 93005; 96372; 97150; 97165; 99285; J9999